=== PATIENT | female | born 1980 | race Caucasian/White ===

== ENCOUNTER 2020-05-09 21:05 | Emergency (ER) | payer BC ==
[~2020-05-09] VITALS: Ht 167.6 cm; Wt 56.9 kg
--- NOTE | 2020-05-09 22:06 | NUR ---
pt states pain in mouth from cracked tooth and pain on right ear from infection
[2020-05-09] MEDS ORDERED: DOXY100C77 PO (22:08)
[2020-05-09] MEDS ORDERED: IBUP-1984 PO (22:08)
[2020-05-09] MEDS ORDERED: LIDOcaine 1% W/epiNEPHrine 1:200,000 10ml vial IJ ONE (22:10)
[2020-05-09] MEDS ORDERED: HYDROcodone/acetaminophen 5mg/325mg tablet PO ONE (22:10)
[2020-05-09] MEDS ORDERED: ondansetron 4mg rapidly disintigrating tab PO ONE (22:10)
[2020-05-09 22:53] VITALS: BP 135/78
== END 2020-05-09 22:54 | disposition home or self-care (01) ==
LOC: ER 21:07
DX: K08.89 Other specified disorders of teeth and supporting structures (principal); H60.01 Abscess of right external ear; G89.29 Other chronic pain; F17.200 Nicotine dependence, unspecified, uncomplicated; Z79.2 Long term (current) use of antibiotics; Z79.899 Other long term (current) drug therapy
CPT/HCPCS: 69000; 99283